=== PATIENT | female | born 1945 | race Caucasian/White ===

== ENCOUNTER 2018-03-07 10:23 | Outpatient (RCR) | payer MEDICARE, OTHER | END 2018-03-16 13:48 | LOC: OPPGERO 10:23 | DX: F41.1 Generalized anxiety disorder (principal); F32.1 Major depressive disorder, single episode, moderate; Z85.3 Personal history of malignant neoplasm of breast ==

== ENCOUNTER 2018-03-17 10:58 | Outpatient (RCR) | payer MEDICARE, OTHER | END 2018-04-14 13:10 | LOC: OPPGERO 10:58 | DX: F41.1 Generalized anxiety disorder (principal); F32.1 Major depressive disorder, single episode, moderate; Z85.3 Personal history of malignant neoplasm of breast; Z87.81 Personal history of (healed) traumatic fracture; Z63.6 Dependent relative needing care at home; Z60.0 Problems of adjustment to life-cycle transitions; Z63.79 Other stressful life events affecting family and household ==

== ENCOUNTER 2018-04-17 09:34 | Outpatient (RCR) | payer MEDICARE, OTHER | END 2018-05-16 14:23 | LOC: OPPGERO 09:34 | DX: F41.1 Generalized anxiety disorder (principal); F32.1 Major depressive disorder, single episode, moderate; Z63.6 Dependent relative needing care at home; Z60.0 Problems of adjustment to life-cycle transitions; Z63.79 Other stressful life events affecting family and household; Z85.3 Personal history of malignant neoplasm of breast; Z87.81 Personal history of (healed) traumatic fracture ==

== ENCOUNTER 2018-05-17 09:56 | Outpatient (RCR) | payer MEDICARE, OTHER | END 2018-06-16 13:54 | LOC: OPPGERO 09:56 | DX: F41.1 Generalized anxiety disorder (principal); F32.1 Major depressive disorder, single episode, moderate; Z74.9 Problem related to care provider dependency, unspecified; Z60.0 Problems of adjustment to life-cycle transitions; R53.81 Other malaise; Z85.3 Personal history of malignant neoplasm of breast ==

== ENCOUNTER 2018-06-20 10:48 | Outpatient (RCR) | payer MEDICARE, OTHER | END 2018-07-14 14:05 | LOC: OPPGERO 10:48 | DX: F41.1 Generalized anxiety disorder (principal); F32.1 Major depressive disorder, single episode, moderate; Z63.6 Dependent relative needing care at home; Z60.0 Problems of adjustment to life-cycle transitions; Z72.89 Other problems related to lifestyle; Z85.3 Personal history of malignant neoplasm of breast ==